=== PATIENT | male | born 1995 | race Caucasian/White ===

== ENCOUNTER 2024-01-08 18:20 | Emergency (ER) | payer MEDICAID ==
[~2024-01-08] VITALS: Ht 185.4 cm; Wt 105.0 kg
[2024-01-08 18:30] VITALS: BP 150/88; PULSE 63; RESP 16; TEMP 98.3; O2SAT 98
[2024-01-08] MEDS: ACETAMINOPHEN 325MG TABLET PO ONE (19:05)
== END 2024-01-08 20:40 | disposition home or self-care (01) ==
LOC: ER 18:20
DX: S09.90XA Unspecified injury of head, initial encounter (principal); J45.909 Unspecified asthma, uncomplicated; F31.9 Bipolar disorder, unspecified; F20.9 Schizophrenia, unspecified; X58.XXXA Exposure to other specified factors, initial encounter; Y93.89 Activity, other specified; Y92.89 Other specified places as the place of occurrence of the external cause; Y99.8 Other external cause status
CPT/HCPCS: 99284